=== PATIENT | female | born 1935 | race African-American/Black ===

== ENCOUNTER 2017-01-16 15:33 | Observation (INO) | payer MEDICARE, BC ==
--- NOTE | ~2017-01-16 | HP ---
Unit #: [id number] #: [id number] Patient: YAHIR KARIMI [id number] [address] [place], [place] [address] [id number] E MR#: [id number] NAME: YAHIR KARIMI ROOM: Age: 81 Sex: F Admission Date: 01/16/2017 : 1935 Attending Physician: Sergei Tompkins D.O. HISTORY AND PHYSICAL CHIEF COMPLAINT Dyspnea on exertion and weakness. HISTORY OF PRESENT ILLNESS This pleasant 81-year-old female with hypertension and prior TIA is admitted for dyspnea. The patient states that she went to the store today. While ambulating, she developed dyspnea on exertion along with heaviness in both legs. No other symptoms with the above. She presented to this emergency department this afternoon with stable vital signs. Cardiac enzymes x2 are negative, and EKG just shows nonspecific ST wave abnormalities. The patient denies a history of cardiac disease. She did not experience chest pain with her dyspnea. Her symptoms at this time are resolved. Workup thus far is fairly unrevealing. In the ER, she was given an aspirin and referred for admission. PAST MEDICAL HISTORY 1. Transient ischemic attack admitted to [facility] around 2000. 2. Hypertension. 3. Remote Mei palsy affecting the left face. 4. Left foot surgery resulting in a degree of immobilization. 5. Cyst removed from the back. 6. Colonoscopy in 2009 revealing diverticular disease. ALLERGIES None. HOME MEDICATIONS 1. Dyazide 37.5/25 daily. 2. Tegretol ER. Patient takes 200 mg at bedtime. 3. Elavil 10 mg 2 tablets at bedtime. 4. Aspirin. FAMILY HISTORY Negative for CAD. SOCIAL HISTORY The patient lives with her . She is a lifelong nonsmoker and does not drink alcohol. REVIEW OF SYSTEMS Notable for dyspnea on exertion with leg heaviness today, TIA, Unit #: [id number] #: [id number] Patient: YAHIR KARIMI hypertension, Mei palsy, and above-mentioned surgeries. All other systems were reviewed and are otherwise negative. PHYSICAL EXAMINATION GENERAL: A pleasant, moderately obese, 81-year-old female who looks younger than stated age. VITAL SIGNS: Temperature 97.7, pulse 81, respirations 16, blood pressure 142/72, and O2 saturation 99% on room air. HEENT: Eyes PERRLA. Extraocular muscles are intact. Pharynx is benign with a slight left lower facial droop which is old. NECK: Supple without adenopathy, thyromegaly, or carotid bruits. CHEST: A few crackles at the left base. CARDIAC: Normal S1 and S2, without definite murmur. ABDOMEN: Bowel sounds are present. No hepatosplenomegaly, tenderness, or masses. EXTREMITIES: Without clubbing, cyanosis, or edema. Pedal pulses are diminished. No ulcers on the feet. NEUROLOGIC: Patient is awake, alert, and oriented. Cranial nerves are intact except that she has a left lower facial droop. Equal strength throughout. DIAGNOSTIC STUDIES LABORATORY: Hematocrit is 37 with normal white count and platelet count. Normal coags. SMA-12 with BUN of 26. BNP and lactic acid normal. Negative cardiac markers x2. IMAGING: Chest x-ray was a limited study as this was an AP view only. Stable mild cardiomegaly, tortuous ectatic thoracic aorta which is stable, low lung volumes, increased interstitial markings, and possible left base opacity. Dopplers of the lower extremities were negative for DVT. CARDIOLOGY: EKG shows a normal sinus rhythm, rate 75, with nonspecific ST wave flattening and left axis deviation. ASSESSMENT 1. Episode of dyspnea on exertion today with weakness, rule out coronary artery disease. No chest pain with the above. 2. Essential hypertension. 3. Prior transient ischemic attack. 4. Remote left Mei palsy. 5. Ectatic thoracic aorta unchanged. No chest pain. PLANS 1. Aspirin and nitroglycerin paste. 2. Serial cardiac enzymes and EKG. 3. Check lipid profile. 4. Cardiology consultation. 5. Will request a formal PA and lateral chest x-ray. Although patient has an opacity at the left lower base, she has no cough with the above or symptoms of pneumonia. 6. Deep venous thrombosis prophylaxis. 7. Request old records. Dictated by Kelsie Greene M.D. [facility]/am Unit #: [id number] #: [id number] Patient: YAHIR KARIMI TD: 01/16/2017 21:28 JOB #: [id number] HISTORY AND PHYSICAL Page 1 of 1 X Kelsie Greene MD HISTORY AND PHYSICAL
--- NOTE | ~2017-01-16 | US84 ---
[id number] [facility] [address] [place], [place] [address] [id number] I MR#: [id number] Acc #: [id number] NAME: YAHIR KARIMI : 1935 SEX: F STUDY DATE/TIME: 01/16/2017 17:26 UNIT: CEDOF ROOM: [id number] STUDY DESCRIPTION: US LE Veins Complete Lucas Stdy Attending Physician: Kelsie Greene M.D. Ordering Physician: Sergei Tompkins D.O. Primary Care Physician: No Primary Care Physician MEDICAL IMAGING REPORT This report is preliminary unless electronic signature is present EXAM Bilateral lower extremity venous duplex 01/16/2017 HISTORY Bilateral lower extremity edema for 2 years. No known injury. Evaluate for deep vein thrombosis. TECHNIQUE Venous ultrasound examination of both lower extremities was performed using grayscale, spectral Doppler and color flow Doppler imaging. FINDINGS The examination is negative. There is no evidence of deep venous thrombus from the groin to the lower calf bilaterally. Visualized greater saphenous veins are also patent. IMPRESSION Negative examination. No evidence of lower extremity deep venous thrombosis. Dictated by... Feng Spangler M.D. THIS IS AN ELECTRONICALLY VERIFIED REPORT Feng Spangler M.D. at 01/17/2017 9:03 AM TOBIAS/theresa TD: 01/16/2017 22:49 JOB #: [id number] MEDICAL IMAGING REPORT Page 1 of 1 COPY
--- NOTE | ~2017-01-16 | CT16 ---
[facility] A Service of [facility] RADIOLOGY TEXT RESULTS PATIENT: YAHIR KARIMI LOCATION: [facility] 324-01 : 35 UNIT #: [id number] AGE: [address]: Brittny Mcgregor MD SEX: F ORDER DR: [id number] [facility] [address] [place], [place] [address] [id number] I MR#: [id number] Acc #: [id number] NAME: YAHIR KARIMI : 1935 SEX: F STUDY DATE/TIME: 01/17/2017 17:08 UNIT: [address] ROOM: [facility] STUDY DESCRIPTION: CT Angio Chest for PE Attending Physician: Brittny Mcgregor M.D. Ordering Physician: Brittny Mcgregor M.D. MEDICAL IMAGING REPORT This report is preliminary unless electronic signature is present EXAM CT angiography chest PE 01/17/2017 HISTORY Short of air for [address] pulmonary angiography performed with intravenous administration of 80 mL Isovue-370. Three-dimensional reconstructions performed through pulmonary arteries. This CT exam was performed with one or more of the following radiation dose reduction techniques: automatic exposure control, adjustment of mA and/or kV according to patient size, and iterative reconstruction. COMPARISON STUDIES No prior CTs of the chest for comparison. FINDINGS Thyroid unremarkable. No axillary adenopathy. No mediastinal or hilar adenopathy. Kcwm-ip-cgooyeie cardiac enlargement. No pericardial or pleural effusion. The visualized portions of the liver, gallbladder, spleen, pancreas, adrenal glands unremarkable. 1 cm exophytic cyst upper pole left kidney. More numerous right renal cysts, the largest in the right parapelvic region measuring up to approximately 4 cm in diameter. No acute appearing renal findings. No upper abdominal adenopathy. Esophagus, stomach, visualized small bowel and colon unremarkable. The lungs show respiratory motion artifact. Dependent atelectasis in the lower lobes. No dense airspace disease. No pleural effusion. There is some subsegmental atelectasis immediately adjacent to the descending thoracic aorta and left lower lobe. [facility] A Service of [facility] RADIOLOGY TEXT RESULTS PATIENT: YAHIR KARIMI LOCATION: [facility] 324-01 : 35 UNIT #: [id number] AGE: [address]: Brittny Mcgregor MD SEX: F ORDER DR: Pulmonary arteries suboptimally opacified. There is no evidence of pulmonary thromboembolic disease. The aorta shows no dissection. The thoracic aorta is tortuous. Descending aorta measures up to about 3.3 cm in diameter. The descending thoracic aorta measures approximately 3.2 cm in diameter. At the diaphragmatic hiatus, the aorta measures approximately 3 cm in diameter. The bony structures show no acute abnormality. Multilevel degenerative changes in the spine. IMPRESSION 1. No PE. 2. Mild ectatic ascending aorta measuring about 3.3 cm in diameter. Mild dilatation descending thoracic aorta measuring about 3.3 cm in diameter. Aorta at level of diaphragmatic hiatus measures about 3 cm in diameter. The visualized aortic branch vessels are patent. 3. Moderate cardiac enlargement. 4. Dependent atelectasis in the lungs. There is no clear indication of acute infectious or inflammatory disease. There is no pleural effusion, pneumothorax or suspicious nodule. 5. Bilateral renal cysts, more numerous and larger in the visualized right kidney. No acute appearing renal abnormality. Remainder of upper abdomen unremarkable. Dictated by... Jeff Fulton M.D. THIS IS AN ELECTRONICALLY VERIFIED REPORT Jeff Fulton M.D. at 01/19/2017 9:03 AM BHAVIK/joaquin TD: 01/17/2017 21:34 JOB #: [id number] MEDICAL IMAGING REPORT Page 1 of 1 COPY
--- NOTE | ~2017-01-16 | EKG ---
PATIENT: YAHIR KARIMI UNIT #: [id number] Ventricular Rate: 68 BPM Atrial Rate: 68 BPM P-R Interval: 164 ms QRS Duration: 74 ms Q-T Interval: 412 ms QTC Calculation(Bezet): 438 ms P [place]es: 35 degrees Calculated R [place]es: -32 degrees Calculated T Andes: -21 degrees Diagnosis Line: Normal sinus rhythm Diagnosis Line: Left axis deviation Diagnosis Line: T wave abnormality, consider anterolateral Diagnosis Line: ischemia Diagnosis Line: Abnormal ECG Diagnosis Line: When compared with ECG of 16-JAN-2017 16:11, Diagnosis Line: (unconfirmed) Diagnosis Line: Nonspecific T wave abnormality now evident in Diagnosis Line: Anterior leads Diagnosis Line: Confirmed by ALBERT SAZE MD ([id number]) on 01/18/2017 Diagnosis Line: 9:58:29 AM INTERPRETING MD: NADJA ESPINOSA
--- NOTE | ~2017-01-16 | CR72 ---
[facility] A Service of [facility] RADIOLOGY TEXT RESULTS PATIENT: YAHIR KARIMI LOCATION: [facility] 324-01 : 35 UNIT #: [id number] AGE: [address]: Brittny Mcgregor MD SEX: F ORDER DR: [id number] [facility] [address] [place], [place] [address] [id number] E MR#: [id number] Acc #: [id number] NAME: YAHIR KARIMI : 1935 SEX: F STUDY DATE/TIME: 01/16/2017 16:28 UNIT: [facility] ROOM: STUDY DESCRIPTION: CR Chest Single View Portable Attending Physician: Sergei Tompkins D.O. Ordering Physician: Sergei Tompkins D.O. Primary Care Physician: No Primary Care Physician MEDICAL IMAGING REPORT This report is preliminary unless electronic signature is present EXAM Portable chest, 01/16/17 HISTORY Shortness of air. Legs feel heavy. Symptoms today. TECHNIQUE AP radiograph of the chest is presented. COMPARISON STUDIES 05/24/13. FINDINGS Stable mild to moderate cardiac enlargement. The descending thoracic aorta is tortuous. Ectatic or danelle aneurysmal dilatation of the descending thoracic aorta not excluded, but the appearance is stable compared to 2012. The lung volumes are lower than on the prior examination, and there is simple bronchovascular crowding. Given the lower lung volumes, there is an increase in linear interstitial markings in the mid to lower lung zones and at the periphery with some patchy densities at the left lung base. The findings are concerning for mild cardiogenic pulmonary edema with interstitial and air space components. No definite pleural effusion. No pneumothorax. The lungs could best be further evaluated with formal PA and lateral radiographs of the chest obtained at full inspiration. Dictated by... Jeff Fulton M.D. THIS IS AN ELECTRONICALLY VERIFIED REPORT Jeff Fulton M.D. at 01/17/2017 3:50 PM [facility] A Service of [facility] RADIOLOGY TEXT RESULTS PATIENT: YAHIR KARIMI LOCATION: [facility] 324-01 : 35 UNIT #: [id number] AGE: [address]: Brittny Mcgregor MD SEX: F ORDER DR: BHAVIK/theresa TD: 01/16/2017 21:24 JOB #: [id number] MEDICAL IMAGING REPORT Page 1 of 1 COPY
--- NOTE | ~2017-01-16 | EKG ---
PATIENT: YAHIR KARIMI UNIT #: [id number] Ventricular Rate: 76 BPM Atrial Rate: 76 BPM P-R Interval: 158 ms QRS Duration: 74 ms Q-T Interval: 412 ms QTC Calculation(Bezet): 463 ms P [place]: 40 degrees Calculated R [place]: -32 degrees Calculated T [place]: -8 degrees Diagnosis Line: Normal sinus rhythm Diagnosis Line: Left axis deviation Nonspecific ST abnormality Diagnosis Line: Moderate voltage criteria for LVH, may be normal Diagnosis Line: variant Diagnosis Line: Abnormal ECG Diagnosis Line: When compared with ECG of 10-MAR-2013 22:44, Diagnosis Line: Nonspecific T wave abnormality no longer evident Diagnosis Line: in Anterior leads Diagnosis Line: Confirmed by ALBERT SAEZ MD ([id number]) on 01/18/2017 Diagnosis Line: 9:48:32 AM INTERPRETING MD: NADJA ESPINSOA
--- NOTE | ~2017-01-16 | CR63 ---
[facility] A Service of [facility] RADIOLOGY TEXT RESULTS PATIENT: YAHIR KARIMI LOCATION: [facility] 324-01 : 35 UNIT #: [id number] AGE: [address]: Brittny Mcgregor MD SEX: F ORDER DR: [id number] [facility] [address] [place], [place] [address] [id number] I MR#: [id number] Acc #: [id number] NAME: YAHIR KARIMI : 1935 SEX: F STUDY DATE/TIME: 01/16/2017 22:29 UNIT: [address] ROOM: [facility] STUDY DESCRIPTION: CR Chest 2 View Attending Physician: Kelsie Greene M.D. Ordering Physician: Kelsie Greene M.D. Primary Care Physician: No Primary Care Physician MEDICAL IMAGING REPORT This report is preliminary unless electronic signature is present EXAM 2-view chest HISTORY Shortness of air legs feel heavy today. COMPARISON 01/16/2017 at 1628 hours FINDINGS 2 views of the chest demonstrates low lung volumes. There is cardiomegaly without failure. There is diffuse aortic atherosclerotic changes. Middle mediastinal density suggests hiatal hernia. No effusions. Degenerative changes thoracic spine. IMPRESSION Cardiomegaly and diffuse aortic atherosclerotic changes. No definite acute abnormality. Dictated by... Candy Yates M.D. THIS IS AN ELECTRONICALLY VERIFIED REPORT Candy Yates M.D. at 01/18/2017 10:34 PM MONICA/radha TD: 01/17/2017 06:51 JOB #: [id number] MEDICAL IMAGING REPORT Page 1 of 1 COPY
--- NOTE | ~2017-01-16 | DS ---
Unit #: [id number] #: [id number] Patient: YAHIR KARIMI [id number] [facility]. [place], [place] [address] [id number] I MR#: [id number] NAME: YAHIR KARIMI ROOM: 324 Age: 81 Sex: F Admission Date: 01/16/2017 : 1935 Discharge Date: 01/18/2017 Attending Physician: Brittny Mcgregor M.D. Primary Care Physician: No Primary Care Physician DISCHARGE SUMMARY DISCHARGE DIAGNOSES 1. Dyspnea on exertion. Possibly secondary to acute diastolic heart failure. 2. Hypertension. 3. History of TIA. 4. History of left-sided Mei palsy. 5. History of thoracic aorta ectasia. Recent CT thorax shows ascending aorta measuring 3.3 cm. 6. Morbid obesity. CONSULTANTS Dr. Cassidy. PROCEDURES PERFORMED None. DIAGNOSTIC DATA CARDIOVASCULAR: Echocardiogram shows ejection fraction of 55%-60%. Impaired relaxation and grade 1 diastolic dysfunction. EKG shows normal sinus rhythm. IMAGING: CT angiogram of the chest shows no PE, mild ectatic ascending aorta measuring 3.3 cm in diameter. Chest x-ray shows cardiomegaly. No infiltrates. Ultrasound of the legs negative for DVT. LABORATORY: BMI 42.7. Troponins negative. ALLERGIES No known drug allergies. DISCHARGE MEDICATIONS 1. Tegretol XR 200 mg in the evening. 2. Amitriptyline 20 mg at bedtime. 3. Triamterene with hydrochlorothiazide 37.5/25 mg 1 capsule p.o. daily. 4. Aspirin 325 mg p.o. daily. HOSPITAL COURSE The patient is an 81-year-old admitted because of shortness of breath. Dyspnea on exertion: Most likely possibly secondary to acute diastolic Unit #: [id number] #: [id number] Patient: YAHIR KARIMI heart failure. PE negative on CT angiogram of the chest. No infiltrates or pneumonia. The patient was seen by cardiology. Currently stable. No diuretics needed as per cardiology. Morbid obesity: Controlled with low-calorie diet. History of TIA: Continue with aspirin. DISPOSITION The patient will be discharged home. FOLLOWUP 1. Follow up with family physician in one week time. 2. Follow up with Dr. Cassidy in four weeks time. Dictated by... Brittny Mcgregor M.D. KJ/gz TD: 01/18/2017 13:36 JOB #: [id number] DISCHARGE SUMMARY Page 1 of 1 X Brittny Mcgregor MD X DISCHARGE SUMMARY
--- NOTE | ~2017-01-16 | BMI ---
[facility] Nutrition Therapy DATE: 01/17/17 Patient: YAHIR KARIMI Physician: DONNELL Address: [address] Room/Bed: [address] [place] [address], Zip: [place] [address] Admit Date: 01/16/17 Date of : [birth year] Height: 5 2 Weight: 233 106 HIGH BMI NOTE: ANTHROPOMETRICS: HT: 62" WT: 106 KG BMI: 42.7 INTERVENTION: 1. NPO RECOMMENDATIONS: 1. ONCE MEDICALLY FEASIBLE, ADVANCE THE PT TO A HEART HEALTHY DIET IN ORDER TO PROMOTE GRADUAL WEIGHT LOSS TOWARDS A HEALTHY BMI RANGE. Respectfully, DESIRE THORPE RD, LD [employer] and Nutritional Services [facility] cc: client file
--- NOTE | ~2017-01-16 | CO ---
Unit #: [id number] #: [id number] Patient: YAHIR KARIMI [id number] [address] [address] [id number] I MR#: [id number] NAME: YAHIR KARIMI ROOM: 324 Age: 81 Sex: F Admission Date: 01/16/2017 : 1935 Attending Physician: Brittny Mcgregor M.D. Primary Care Physician: No Primary Care Physician Consultation Date: 01/17/2017 CONSULTATION REPORT REASON FOR CONSULTATION Dyspnea on exertion. HISTORY OF PRESENT ILLNESS The patient is an 81-year-old -[place] female with a past medical history of hypertension and TIA. 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 She denies any family history of coronary artery disease. Past medical history includes TIA in 2000, a history of hypertension. She does have a remote history of Mei palsy. The patient reports that she was walking to the [place] when she became short of breath and felt heaviness in both of her legs. She denied any chest pain. She presented to the emergency department with stable vital signs. Her cardiac enzymes were negative x2 and EKG was essentially normal. The patient did have an ultrasound of her bilateral lower extremities done which is negative for DVT. PAST MEDICAL HISTORY 1. Hypertension. 2. TIA in 2000. 3. History of Mei palsy. PAST SURGICAL HISTORY 1. Left foot surgery. 2. Cyst removal from her back. 3. Colonoscopy in 2009 revealing diverticular disease. ALLERGIES No known allergies. HOME MEDICATIONS 1. Dyazide 37.5/25 mg p.o. daily. 2. Tegretol ER - patient takes 200 mg p.o. at bedtime. 3. Elavil 10 mg, two tabs p.o. at bedtime. 4. Aspirin. FAMILY HISTORY Negative for coronary artery disease. SOCIAL HISTORY Unit #: [id number] #: [id number] Patient: YAHIR KARIMI The patient lives with her . She is lifelong nonsmoker and does not drink alcohol or use drugs. REVIEW OF SYSTEMS A ten point review of systems has been done and is considered otherwise negative unless indicated in the HPI. PHYSICAL EXAMINATION GENERAL: The patient is awake, alert, in no acute distress. VITAL SIGNS: Temperature 98.8, heart rate 74, respirations 18, blood pressure 148/80. She is oxygenating 98% on room air. HEENT: Head is atraumatic, normocephalic. Pupils are equal, round, reactive. Extraocular movements are intact. No discharge from ears or nares. NECK: Supple. Trachea is midline. Normal carotid upstrokes. No lymphadenopathy or thyromegaly is appreciated. RESPIRATORY: Lungs are diminished bilaterally. No wheezes, rales or rhonchi. CARDIOVASCULAR: S1, S2. Regular rate and rhythm. No murmurs, rubs or gallops appreciated. ABDOMEN: Soft, nontender, nondistended. Bowel sounds are positive in all four quadrants. EXTREMITIES: No clubbing, edema or cyanosis. SKIN: Appears to be warm, dry and intact. NEUROLOGIC: The patient is alert and oriented. Cranial nerves are intact except she does have a slight left lower facial droop from history of (1) palsy. DIAGNOSTIC STUDIES IMAGING: Chest x-ray is a limited study and it showed mild stable cardiomegaly, tortuous ectatic thoracic aorta which is stable. Low lung volumes. Dopplers of lower extremities were negative for DVT. CARDIOVASCULAR: EKG shows a normal sinus rhythm with a rate of 75 beats/minute. LABORATORY: Glucose 96, BUN 22, creatinine 1, sodium 140, potassium 3.6, chloride 105, CO2 29, calcium 9.4. CK 162, troponin less than 0.03 x2, BNP 96, lactic acid 1.6, cholesterol 207, triglycerides 101, LDL 16, HDL 71. White blood cells 6, hemoglobin 11.5, hematocrit 35, platelets 220. ASSESSMENT 1. Dyspnea on exertion. 2. Hypertension. 3. History of transient ischemic attack. 4. History of Mei palsy. 5. Obesity with body mass index greater than 30. PLAN I have discussed this case with Dr. Piña. At this time, the patient does not need a cardiac stress test. She denies chest pain and her enzymes were negative. She has no family history of coronary artery disease at this time. Will check a 2D echocardiogram and check a CT scan of the chest to rule out PE. Likely, the patient will need an obstructive Unit #: [id number] #: [id number] Patient: YAHIR KARIMI sleep apnea eval as an outpatient. If her above tests are negative, likely patient can be discharged home. Dictated by... Annie Burroughs A.P.R.N. for Kip Piña M.D. AM/monika TD: 01/17/2017 11:08 JOB #: [id number] CONSULTATION REPORT Page 1 [address] [facility] X CONSULTATION REPORT
[~2017-01-16 15:33] MED LIST: ANTIBIOTIC; CIPRO PO; MULTI-DAY1 TAB; NORVASC PO; VICODIN 5/1 TAB 5/50 PO
[2017-01-16 16:34] LABS: BASOPHIL# 0.1 X10e3 (0-0.3); BASOPHIL% 0.9 % (0-2.5); DIFF IND NO; EOSINOPHIL# 0.2 X10e3 (0-0.7); EOSINOPHIL% 3.5 % (0.0-7.0); HEMOGLOBIN 11.9 gm/dL (12.0-16.0); LYMPHOCYTE# 1.8 X10e3 (1.0-3.5); LYMPHOCYTE% 32.5 % (17.0-45.0); MEAN CELL VOLUME 92.1 FL (83-96); MEAN CORPUSCULAR HEMOGLOBIN 29.6 PG (28-34); MEAN CORPUSCULAR HGB CONC 32.2 g/dL (30-36); MEAN PLATELET VOLUME 8.5 FL (6.5-11.5); MONOCYTE# 0.5 X10e3 (0-1.0); MONOCYTE% 8.5 % (3.0-12.0); NEUTROPHIL# 3.1 X10e3 (1.5-7.1); NEUTROPHIL% 54.6 % (40-75); PLATELET COUNT 225 X10e3 (140-420); RED BLOOD COUNT 4.01 X10e (3.90-5.30); RED CELL DISTRIBUTION WIDTH 13.8 % (11.0-15.5); WHITE BLOOD COUNT 5.6 X10e3 (4.0-10.5)
[2017-01-16 16:52] LABS: PARTIAL THROMBOPLASTIN TIME 23.9 SECONDS (23.5-31.3); PROTHROMBIN TIME (PATIENT) 10.3 SECONDS (9.6-11.5)
[2017-01-16 17:00] LABS: ALKALINE PHOSPHATASE 78 U/L (32-92); ALT (SGPT) 15 U/L (10-40); AST (SGOT) 23 U/L (10-42); BILIRUBIN, DIRECT <0.1 mg/dL (0.0-0.2); BILIRUBIN,INDIRECT 0.2 mg/dL (0.0-0.9); BILIRUBIN,TOTAL 0.3 mg/dL (0.2-2.0); BLOOD UREA NITROGEN 26 mg/dL (9-23); BUN/CREATININE RATIO 23.63; CALCIUM SERUM 9.5 mg/dL (8.4-10.2); CARBON DIOXIDE 27 mmol/L (22-31); CHLORIDE 105 mmol/L (100-111); CREATININE SERUM 1.1 mg/dL (0.6-1.4); GLOM FILT RATE Estimated 54.5 mL/min (>60); GLUCOSE FASTING 109 mg/dL (70-110); POTASSIUM 3.5 mmol/L (3.5-5.1); PROTEIN TOTAL SERUM 7.9 g/dL (6.0-8.3); SODIUM 141 mmol/L (135-145)
[2017-01-16 19:30] LABS: POC - CKMB 3.7 ng/mL (0.0-7.9); POC - TROPONIN <0.05 ng/mL (<=0.05)
[2017-01-16 19:47] LABS: POC - CKMB 1.3 ng/mL (0.0-7.9); POC - TROPONIN <0.05 ng/mL (<=0.05)
[2017-01-17 00:49] LABS: BASOPHIL# 0.1 X10e3 (0-0.3); BASOPHIL% 0.9 % (0-2.5); EOSINOPHIL# 0.2 X10e3 (0-0.7); EOSINOPHIL% 3.6 % (0.0-7.0); HEMOGLOBIN 11.5 gm/dL (12.0-16.0); LYMPHOCYTE# 2.1 X10e3 (1.0-3.5); LYMPHOCYTE% 35.8 % (17.0-45.0); MEAN CELL VOLUME 90.8 FL (83-96); MEAN CORPUSCULAR HEMOGLOBIN 29.8 PG (28-34); MEAN CORPUSCULAR HGB CONC 32.8 g/dL (30-36); MEAN PLATELET VOLUME 8.1 FL (6.5-11.5); MONOCYTE# 0.6 X10e3 (0-1.0); MONOCYTE% 9.6 % (3.0-12.0); NEUTROPHIL% 50.1 % (40-75); PLATELET COUNT 220 X10e3 (140-420); RED BLOOD COUNT 3.85 X10e (3.90-5.30); RED CELL DISTRIBUTION WIDTH 13.7 % (11.0-15.5)
[2017-01-17 00:50] LABS: DIFF IND NO
[2017-01-17 01:33] LABS: CALCIUM SERUM 9.4 mg/dL (8.4-10.2); GLOM FILT RATE Estimated 61.2 mL/min (>60); POTASSIUM 3.6 mmol/L (3.5-5.1)
[2017-01-17 01:36] LABS: %MB 2.1 % (0.0-4.0); MB 3.4 ng/ml
[2017-01-17 07:46] LABS: %MB 2.2 % (0.0-4.0); MB 3.6 ng/ml
[2017-01-18] MEDS ORDERED: TEGRETOL XR200 MG PO (13:38)
[2017-01-18] MEDS ORDERED: DYAZIDE 371 CAP 37.5 PO (13:39)
[2017-01-18] MEDS ORDERED: AMITRYPTYLINE PO (13:39)
[2017-01-18] MEDS ORDERED: COATED ASPIRIN325 M1 PO (13:40)
== END 2017-01-18 18:00 | disposition home or self-care (01) ==
LOC: CED 15:33 → CEDOF 21:10 → C3A PCU 21:12 → CEDOF 21:12 → CED 21:12 → C3A PCU 22:57 → CEDOF 22:57 → C3A PCU 01-17 07:19
PROVIDERS: Emergency Medicine; Internal Medicine
DX: R06.00 Dyspnea, unspecified (principal); I77.810 Thoracic aortic ectasia; I51.7 Cardiomegaly; J98.11 Atelectasis; N28.1 Cyst of kidney, acquired; I70.0 Atherosclerosis of aorta; J98.4 Other disorders of lung; I37.1 Nonrheumatic pulmonary valve insufficiency; I08.3 Combined rheumatic disorders of mitral, aortic and tricuspid valves; I11.0 Hypertensive heart disease with heart failure; I50.30 Unspecified diastolic (congestive) heart failure; E66.01 Morbid (severe) obesity due to excess calories; Z68.30 Body mass index [BMI] 30.0-30.9, adult; Z79.82 Long term (current) use of aspirin; Z79.899 Other long term (current) drug therapy; Z86.73 Personal history of transient ischemic attack (TIA), and cerebral infarction without residual deficits
CPT/HCPCS: 36415; 71010; 71020; 71275; 80048; 80061; 80076; 82550; 82553; 83605; 83880; 84484; 85025; 85610; 85730; 93005; 93306; 93970; 94760; 96372; 99285; G0378; J1650; Q9967